=== PATIENT | female | born 1980 | race Caucasian/White ===

== ENCOUNTER 2021-01-02 20:57 | Inpatient (IN) | payer MEDICAID, OTHER ==
[~2021-01-02] VITALS: Ht 149.9 cm; Wt 54.4 kg
[2021-01-02 20:57] VITALS: BP 95/60
[2021-01-03] MEDS ORDERED: ONDANSETRON HCL 4MG TABLET PO PRN (00:15)
[2021-01-03 08:00] VITALS: BP 108/46
[2021-01-03] MEDS: METOPROLOL TARTRATE 25MG TABLET PO SCH ×2 (08:34→16:58)
[2021-01-03] MEDS: GABAPENTIN 300MG CAPSULE PO SCH ×2 (08:34→16:56)
[2021-01-03] MEDS: HYDROCORTISONE 2.5% OINT 20GM TOP SCH ×2 (08:34→21:13)
[2021-01-03] MEDS: ASPIRIN 325MG EC TABLET PO SCH (08:34)
[2021-01-03] MEDS ORDERED: HYDROCORTISONE 2.5% CREAM 20GM TOP SCH (09:00)
[2021-01-03] MEDS ORDERED: BISACODYL 5MG TABLET PO PRN (17:30)
[2021-01-03] MEDS: DOCUSATE SODIUM 100MG CAPSULE PO SCH (18:00)
[2021-01-03 20:00] VITALS: BP 96/42
[2021-01-03] MEDS: ATORVASTATIN CALCIUM 40MG TABLET PO SCH (21:13)
[2021-01-04 06:43] LABS: BASOPHILS % 0.4 % (0.0-2.0); EOSINOPHILS % 3.1 % (0.0-5.0); HEMATOCRIT. 36.3 % (36.0-48.0); HEMOGLOBIN. 12.3 g/dL (12.0-16.0); LYMPHOCYTES % 27.2 % (20.0-50.0); MEAN CORPUSCULAR HEMOGLOBIN 29.7 pg (28.0-32.0); MEAN CORPUSCULAR VOLUME 87.7 fL (81.0-99.0); MEAN PLATELET VOLUME 7.8 fl (7.4-10.4); MONOCYTES % 8.1 % (2.0-8.0); NEUTROPHILS % 61.2 % (40.0-76.0); PLATELET 379 x1000/uL (130-400); RED BLOOD CELL COUNT 4.14 mill/uL (4.2-5.4)
[2021-01-04 06:52] LABS: CHLORIDE 110 mEq/L (98-107)
[2021-01-04 07:00] LABS: LDL CHOLESTEROL 53 mg/dL (5-100)
[2021-01-04 07:02] LABS: HDL CHOLESTEROL 33 mg/dL (40-59)
[2021-01-04 08:00] VITALS: BP 94/53
[2021-01-04] MEDS: METOPROLOL TARTRATE 25MG TABLET PO SCH ×2 (09:00→17:00)
[2021-01-04] MEDS: ASPIRIN 325MG EC TABLET PO SCH (09:25)
[2021-01-04] MEDS: GABAPENTIN 300MG CAPSULE PO SCH ×2 (09:25→18:26)
[2021-01-04] MEDS: DOCUSATE SODIUM 100MG CAPSULE PO SCH ×2 (09:26→17:00)
[2021-01-04] MEDS: HYDROCORTISONE 2.5% OINT 20GM TOP SCH ×2 (09:26→20:55)
[2021-01-04 18:28] VITALS: BP 101/55
[2021-01-04 20:00] VITALS: BP 96/54
[2021-01-04] MEDS: ATORVASTATIN CALCIUM 40MG TABLET PO SCH (20:55)
[2021-01-05 07:55] VITALS: BP 95/58
[2021-01-05] MEDS: METOPROLOL TARTRATE 25MG TABLET PO SCH ×2 (09:00→16:44)
[2021-01-05] MEDS: ASPIRIN 325MG EC TABLET PO SCH (09:00)
[2021-01-05] MEDS: DOCUSATE SODIUM 100MG CAPSULE PO SCH ×2 (09:00→16:44)
[2021-01-05] MEDS: GABAPENTIN 300MG CAPSULE PO SCH ×2 (09:00→16:43)
[2021-01-05] MEDS: HYDROCORTISONE 2.5% OINT 20GM TOP SCH ×2 (09:01→21:52)
[2021-01-05 16:30] VITALS: BP 97/59
[2021-01-05 20:00] VITALS: BP 100/60
[2021-01-05] MEDS: ATORVASTATIN CALCIUM 40MG TABLET PO SCH (21:52)
[2021-01-06 08:04] VITALS: BP 102/49
[2021-01-06] MEDS: DOCUSATE SODIUM 100MG CAPSULE PO SCH ×2 (08:53→16:31)
[2021-01-06] MEDS: ASPIRIN 325MG EC TABLET PO SCH (08:53)
[2021-01-06] MEDS: GABAPENTIN 300MG CAPSULE PO SCH ×2 (08:53→16:31)
[2021-01-06] MEDS: HYDROCORTISONE 2.5% OINT 20GM TOP SCH ×2 (08:53→21:48)
[2021-01-06] MEDS: METOPROLOL TARTRATE 25MG TABLET PO SCH (08:55)
[2021-01-06 20:00] VITALS: BP 98/50
[2021-01-06] MEDS: ATORVASTATIN CALCIUM 40MG TABLET PO SCH (21:48)
[2021-01-07 07:56] VITALS: BP 104/53
[2021-01-07] MEDS: DOCUSATE SODIUM 100MG CAPSULE PO SCH ×2 (08:39→16:10)
[2021-01-07] MEDS: GABAPENTIN 300MG CAPSULE PO SCH ×2 (08:39→16:10)
[2021-01-07] MEDS: ASPIRIN 325MG EC TABLET PO SCH (08:39)
[2021-01-07] MEDS: HYDROCORTISONE 2.5% OINT 20GM TOP SCH ×2 (08:40→21:42)
[2021-01-07 20:00] VITALS: BP 99/57
[2021-01-07] MEDS: ATORVASTATIN CALCIUM 40MG TABLET PO SCH (21:42)
[2021-01-08] MEDS: HYDROCORTISONE 2.5% OINT 20GM TOP SCH ×2 (09:00→21:48)
[2021-01-08] MEDS: DOCUSATE SODIUM 100MG CAPSULE PO SCH ×2 (10:21→18:52)
[2021-01-08] MEDS: ASPIRIN 325MG EC TABLET PO SCH (10:22)
[2021-01-08] MEDS: GABAPENTIN 300MG CAPSULE PO SCH ×2 (10:22→18:52)
[2021-01-08 20:00] VITALS: BP 103/55
[2021-01-08] MEDS: ATORVASTATIN CALCIUM 40MG TABLET PO SCH (21:49)
[2021-01-09 08:14] VITALS: BP 99/50
[2021-01-09] MEDS: DOCUSATE SODIUM 100MG CAPSULE PO SCH ×2 (08:32→16:27)
[2021-01-09] MEDS: GABAPENTIN 300MG CAPSULE PO SCH ×2 (08:32→16:27)
[2021-01-09] MEDS: ASPIRIN 325MG EC TABLET PO SCH (08:32)
[2021-01-09] MEDS: HYDROCORTISONE 2.5% OINT 20GM TOP SCH ×2 (08:32→20:39)
[2021-01-09] MEDS: ACETAMINOPHEN 325MG TABLET PO PRN ×2 (08:34→15:08)
[2021-01-09 20:00] VITALS: BP 95/59
[2021-01-09] MEDS: ATORVASTATIN CALCIUM 40MG TABLET PO SCH (20:38)
[2021-01-10] MEDS: ACETAMINOPHEN 325MG TABLET PO PRN (06:12)
[2021-01-10 08:00] VITALS: BP 101/52
[2021-01-10] MEDS: DOCUSATE SODIUM 100MG CAPSULE PO SCH ×2 (08:42→17:08)
[2021-01-10] MEDS: HYDROCORTISONE 2.5% OINT 20GM TOP SCH ×2 (08:42→20:07)
[2021-01-10] MEDS: GABAPENTIN 300MG CAPSULE PO SCH ×2 (08:42→17:08)
[2021-01-10] MEDS: ASPIRIN 325MG EC TABLET PO SCH (08:42)
[2021-01-10 20:00] VITALS: BP 91/53
[2021-01-10] MEDS: ATORVASTATIN CALCIUM 40MG TABLET PO SCH (20:07)
[2021-01-11 08:00] VITALS: BP 100/49
[2021-01-11] MEDS: GABAPENTIN 300MG CAPSULE PO SCH ×2 (08:35→16:29)
[2021-01-11] MEDS: DOCUSATE SODIUM 100MG CAPSULE PO SCH ×2 (08:35→16:29)
[2021-01-11] MEDS: ASPIRIN 325MG EC TABLET PO SCH (08:35)
[2021-01-11] MEDS: ACETAMINOPHEN 325MG TABLET PO PRN (08:35)
[2021-01-11] MEDS: HYDROCORTISONE 2.5% OINT 20GM TOP SCH ×2 (08:36→20:14)
[2021-01-11 20:00] VITALS: BP_SYST 100; BP_SYST 114; BP_DIAS 39; BP_DIAS 49
[2021-01-11] MEDS: ATORVASTATIN CALCIUM 40MG TABLET PO SCH (20:14)
[2021-01-12 08:00] VITALS: BP 110/49
[2021-01-12] MEDS: ASPIRIN 325MG EC TABLET PO SCH (09:32)
[2021-01-12] MEDS: HYDROCORTISONE 2.5% OINT 20GM TOP SCH ×2 (09:32→20:38)
[2021-01-12] MEDS: DOCUSATE SODIUM 100MG CAPSULE PO SCH ×2 (09:32→17:07)
[2021-01-12] MEDS: GABAPENTIN 300MG CAPSULE PO SCH ×2 (09:32→17:07)
[2021-01-12 18:54] VITALS: BP 116/57
[2021-01-12 20:00] VITALS: BP 107/47
[2021-01-12] MEDS ORDERED: MAGNESIUM/ALUMINUM HYDROXIDE/SIMETHICONE 30ML UDC PO PRN (20:15)
[2021-01-12] MEDS: ATORVASTATIN CALCIUM 40MG TABLET PO SCH (20:36)
[2021-01-13] MEDS: DOCUSATE SODIUM 100MG CAPSULE PO SCH ×2 (08:40→16:44)
[2021-01-13] MEDS: GABAPENTIN 300MG CAPSULE PO SCH ×2 (08:40→16:44)
[2021-01-13] MEDS: ASPIRIN 325MG EC TABLET PO SCH (08:40)
[2021-01-13 08:41] VITALS: BP 100/50
[2021-01-13] MEDS: HYDROCORTISONE 2.5% OINT 20GM TOP SCH ×2 (08:41→21:54)
[2021-01-13 20:00] VITALS: BP 110/42
[2021-01-13] MEDS: ATORVASTATIN CALCIUM 40MG TABLET PO SCH (21:52)
[2021-01-13] MEDS: SERTRALINE HCL 25MG TABLET PO SCH (22:01)
[2021-01-14] MEDS: ACETAMINOPHEN 325MG TABLET PO PRN (06:07)
[2021-01-14 08:00] VITALS: BP 102/47
[2021-01-14] MEDS: HYDROCORTISONE 2.5% OINT 20GM TOP SCH ×2 (09:00→21:41)
[2021-01-14] MEDS: GABAPENTIN 300MG CAPSULE PO SCH ×2 (09:25→17:27)
[2021-01-14] MEDS: DOCUSATE SODIUM 100MG CAPSULE PO SCH ×2 (09:25→17:27)
[2021-01-14] MEDS: ASPIRIN 325MG EC TABLET PO SCH (09:25)
[2021-01-14] MEDS: SERTRALINE HCL 25MG TABLET PO SCH (09:26)
[2021-01-14 20:00] VITALS: BP 106/56
[2021-01-14] MEDS: ATORVASTATIN CALCIUM 40MG TABLET PO SCH (21:40)
[2021-01-15 08:00] VITALS: BP 118/52
[2021-01-15] MEDS: ASPIRIN 325MG EC TABLET PO SCH (08:21)
[2021-01-15] MEDS: SERTRALINE HCL 25MG TABLET PO SCH (08:21)
[2021-01-15] MEDS: GABAPENTIN 300MG CAPSULE PO SCH ×2 (08:21→16:31)
[2021-01-15] MEDS: DOCUSATE SODIUM 100MG CAPSULE PO SCH ×2 (08:21→16:31)
[2021-01-15] MEDS: HYDROCORTISONE 2.5% OINT 20GM TOP SCH ×2 (08:24→21:33)
[2021-01-15 20:00] VITALS: BP 99/52
[2021-01-15] MEDS: ATORVASTATIN CALCIUM 40MG TABLET PO SCH (21:33)
[2021-01-16 08:00] VITALS: BP 102/47
[2021-01-16 08:33] VITALS: BP 102/47
[2021-01-16] MEDS: DOCUSATE SODIUM 100MG CAPSULE PO SCH (09:17)
[2021-01-16] MEDS: SERTRALINE HCL 25MG TABLET PO SCH (09:17)
[2021-01-16] MEDS: GABAPENTIN 300MG CAPSULE PO SCH (09:17)
[2021-01-16] MEDS: ASPIRIN 325MG EC TABLET PO SCH (09:17)
[2021-01-16] MEDS: HYDROCORTISONE 2.5% OINT 20GM TOP SCH (09:18)
== END 2021-01-16 11:27 | disposition home health service (06) | DRG 58 ==
PROVIDERS: ADMIT Psychiatry & Neurology Neurology; ATTEND Hospitalist
DX: I69.334 Monoplegia of upper limb following cerebral infarction affecting left non-dominant side (principal); I63.9 Cerebral infarction, unspecified; K80.70 Calculus of gallbladder and bile duct without cholecystitis without obstruction; E04.1 Nontoxic single thyroid nodule; R13.10 Dysphagia, unspecified; Z82.49 Family history of ischemic heart disease and other diseases of the circulatory system; F32.9 Major depressive disorder, single episode, unspecified; F43.10 Post-traumatic stress disorder, unspecified; F41.9 Anxiety disorder, unspecified
CPT/HCPCS: 36415; 80048; 80061; 85025; 92523; 92610; 93880; 93970; 97110; 97112; 97116; 97140; 97162; 97166; 97530; 97535